=== PATIENT | female | born 1975 | race Caucasian/White ===

== ENCOUNTER 2019-06-28 10:20 | Emergency (ER) | payer MEDICAID, MEDICARE ==
[2019-06-28 10:44] VITALS: BP 131/71
--- NOTE | 2019-06-28 10:58 | ED Physician Documentation ---
PD HPI LOWER EXT INJURY - Stated complaint Stated Complaint: R KNEE PX - Chief complaint Chief Complaint: Ext Problem - History obtained from History obtained from: Patient - History of Present Illness PD HPI LOW EXT INJURY LOCATION: Right, Knee Type of injury: Other (has had onset of anterior right knee pain worsening over the past week or two. No noted abrupt injury. No redness. Pain with ROM and walking. Had video appt with PCP and told to get wrap at store. This is not helping.). No: Fall, Blunt / blow Improved by: Rest Worsened by: Moving (walking and extending.), Palpating (anterior knee) Associated symptoms: Swelling. No: Weakness, Numbness, Discolored Similar symptoms before: Has not had sx before Recently seen: Clinic (telehealth appt with PCP about knee.) Review of Systems Constitutional: denies: Fever, Chills Skin: denies: Abrasion (s), Laceration (s) Neurologic: denies: Focal weakness, Numbness PD PAST MEDICAL HISTORY - Past Medical History Cardiovascular: None Endocrine/Autoimmune: None BEATER OUT: Endometriosis Psych: Depression, Anxiety, ADD/ADHD Musculoskeletal: None - Past Surgical History Past Surgical History: Yes /BEATER OUT: Hysterectomy HEENT: Myringotomy (tubes), Tonsil/Adenoidectomy - Present Medications Home Medications: Ambulatory Orders Medication Instructions Recorded Confirmed Fluoxetine HCl [Prozac] 80 mg PO DAILY 07/15/13 09/09/13 HYDROcod/ACETAM 5/325 [Vicodin 1 - 2 ea PO Q6H PRN #15 tablet 09/09/13 5/325] Hydrocodone/Acetaminophen [[place] 1 each PO Q6H PRN #15 tablet 06/28/19 5-325 Tablet] Naproxen 375 mg PO BID #20 tablet 06/28/19 dexAMETHasone [Decadron] 4 mg PO DAILY #5 tablet 06/28/19 - Allergies Allergies/Adverse Reactions: Allergies Allergy/AdvReac Type Severity Reaction Status Date / Time No Known Drug Allergies Allergy Verified 06/28/19 10:36 - Social History Does the pt smoke?: No Smoking Status: Never smoker Does the pt drink ETOH?: No Does the pt have substance abuse?: No - Immunizations Immunizations are current?: Yes - POLST Patient has POLST: No PD ED PE NORMAL - Vitals Vital signs reviewed: Yes - General General: Alert and oriented X 3, No acute distress, Well developed/nourished - Derm Derm: Normal color, Warm and dry, No rash - Extremities Extremities: No edema, No calf tenderness / cord, Other (right knee with tenderness in infrapatellar area with some local swelling. No effusion. No noted pain nor laxity with collateral and cruciate testing. ) - Neuro Neuro: Alert and oriented X 3, No motor deficit, No sensory deficit Results - Vitals Vitals: Oxygen O2 Source Room air - Rads (name of study) right knee Radiology: Prelim report reviewed (no acute injury; some mild arthritic changes. ), See rad report PD MEDICAL DECISION MAKING - ED course Complexity details: considered differential (tender in the anterior knee and just below patella. No redness nor effusion, but some local swelling. ), d/w patient Departure - Departure Disposition: 01 Home, Self Care Clinical Impression: Right knee pain Qualifiers: Chronicity: acute Qualified Code(s): M25.561 - Pain in right knee Prepatellar bursitis Qualifiers: Laterality: right Qualified Code(s): M70.41 - Prepatellar bursitis, right knee Condition: Stable Record reviewed to determine appropriate education?: Yes Follow-Up: Shaun Patino MD [Emergency Provider] - Prescriptions: dexAMETHasone [Decadron] 4 mg PO DAILY #5 tablet Hydrocodone/Acetaminophen [[place] 5-325 Tablet] 1 each PO Q6H PRN #15 tablet PRN Reason: Pain Naproxen 375 mg PO BID #20 tablet Comments: Use the knee brace when up and around to reduce the amount of movement at the knee to help with cartilage and movement at the bursa and tendons. Use the crutches for partial weightbearing as needed for comfort. I think your knee pain is being caused by some inflammation at the tendon and bursa in the front of the knee. It may be some related to arthritis in the knee to or some inflammation of the cartilage. The knee brace as well as anti-inflammatories should be helpful for all of those. Decadron steroid daily for 5 days. Naproxen anti-inflammatory as well twice daily for a week or so. Take these with food do not bother your stomach. Add Tylenol 3-4 times a day for pain or hydrocodone if needed for worse pain. Continue your other usual medicines. Follow-up with your primary if not improved well over the next several days to week. Discharge Date/Time: 06/28/19 12:49
[2019-06-28] MEDS ORDERED: NAPROXEN 250 MG TABLET PO STA (11:17)
[2019-06-28] MEDS ORDERED: CHERRY SYRUP 10 ML UDC PO ONE (11:17)
[2019-06-28] MEDS ORDERED: DEXAMETHASONE 10 MG/ML VIAL PO STA (11:17)
[2019-06-28] MEDS ORDERED: HYDROcod/ACETAM 5/325 MG TABLET PO STA (11:17)
--- NOTE | 2019-06-28 12:04 | XRAY Report ---
Reason: knee pain for weeks; no noted injury Procedure Date: 06/28/2019 Accession Number: [id number] / [id number] Procedure: XR - Knee 3 View RT CPT Code: Final Report FULL RESULT: EXAM: RIGHT KNEE RADIOGRAPHY EXAM DATE: 06/28/2019 11:45 AM. CLINICAL HISTORY: Knee pain for weeks; no noted injury. COMPARISON: None. TECHNIQUE: 3 views. FINDINGS: Bones: No acute fracture seen. Prominent osteophytes are present, with mild bony remodeling. Joints: Moderate joint space narrowing present. No significant joint effusion seen. There is lateral subluxation of the patella. Soft Tissues: Mild prepatellar soft tissue swelling seen. IMPRESSION: 1. Moderate osteoarthritic changes present, with lateral subluxation of the patella. No acute fracture noted. [facility]
== END 2019-06-28 12:49 | disposition home or self-care (01) ==
LOC: ED 10:20
DX: M70.41 Prepatellar bursitis, right knee (principal); M17.11 Unilateral primary osteoarthritis, right knee
CPT/HCPCS: 73562; 99283; A9270